=== PATIENT | male | born 1960 | race Caucasian/White ===

== ENCOUNTER → 2019-10-22 | Outpatient (CLI) | payer OTHER | END | disposition home or self-care (01) | LOC: LAB 13:13 | PROVIDERS: ATTEND Surgery | DX: Z01.812 Encounter for preprocedural laboratory examination (principal); Z20.828 Contact with and (suspected) exposure to other viral communicable diseases; K40.90 Unilateral inguinal hernia, without obstruction or gangrene, not specified as recurrent | CPT/HCPCS: U0003-CS ==

== ENCOUNTER 2019-10-27 11:38 | Day surgery (SDC) | payer OTHER ==
[~2019-10-27] VITALS: Ht 170.2 cm; Wt 56.0 kg
[2019-10-27] MEDS: IV RINGERS,LACTATED 1000ML 1,000 ML IV SCH ×2 (07:00→15:10)
[~2019-10-27 11:38] MED LIST: ACETAMINOPHEN 500 MG TABLET PO SCH; HYDROmorphone 2 MG/ML VIAL IV PRN; LIDOCAINE 1% PF 2 ML VIAL. ID PRN; MORPHINE SULFATE 2 MG/ML VIAL. IV PRN; ONDANSETRON PF 4 MG/2 ML VIAL. IV PRN; fentaNYL PF VIAL 100 MCG/2 ML VIAL IV PRN
[2019-10-27] MEDS ORDERED: DEXAMETHASONE SOD PHOS 4 MG/ML VIAL ONE (12:33)
[2019-10-27] MEDS ORDERED: fentaNYL PF VIAL 100 MCG/2 ML VIAL ONE ×2 (12:33→14:50)
[2019-10-27] MEDS ORDERED: SEVOFLURANE > 120 MINUTES. IH ONE (12:33)
[2019-10-27] MEDS ORDERED: MIDAZOLAM HCL/PF 2 MG/2 ML VIAL. ONE (12:33)
[2019-10-27] MEDS ORDERED: GLYCOPYRROLATE 1 MG/5 ML VIAL. ONE (12:33)
[2019-10-27] MEDS ORDERED: NEOSTIGMINE METHYLSULFATE 5 MG/5 ML SYRINGE. ONE (12:33)
[2019-10-27] MEDS ORDERED: ROCURONIUM 50 MG/5 ML VIAL. ONE (12:33)
[2019-10-27] MEDS ORDERED: PROPOFOL 10 MG/ML (20ML) VIAL. IV ONE (12:33)
[2019-10-27] MEDS ORDERED: ONDANSETRON PF 4 MG/2 ML VIAL. ONE (12:34)
[2019-10-27] MEDS ORDERED: LIDOCAINE 2% PF 5 ML VIAL. ONE (12:34)
[2019-10-27] MEDS ORDERED: MINERAL OIL for SURGERY 10 ML VIAL. MC ONE (13:00)
[2019-10-27] MEDS ORDERED: BUPIVACAINE-EPI 0.25%-1:200000 MPF 30 ML VIAL. INJ ONE (13:30)
[2019-10-27] MEDS ORDERED: ACETAMINOPHEN 500 MG TABLET PO ONE (13:45)
[2019-10-27] MEDS ORDERED: BUPIVACAINE-EPI 0.5%-1:200000 MPF 30 ML VIAL. ONE (13:51)
[2019-10-27] MEDS ORDERED: ePHEDrine PF IN SALINE 50 MG/10 ML SYRINGE. IV ONE (13:57)
[2019-10-27] MEDS ORDERED: PHENYLEPHRINE in 0.9% NACL PF 1 MG/10 ML SYRINGE. IV ONE (13:57)
--- NOTE | 2019-10-27 14:33 | PDOC4 ---
Operative Note Operative Note Date: 10/27/2019 at 1430 Preoperative diagnosis: Left inguinal hernia Postoperative diagnosis: Same Procedure: Robotic assisted laparoscopic left inguinal hernia repair with mesh Surgeon: Patricio Specimen: None Dictation: Patient is a 59-year-old gentleman with a left inguinal hernia and pain procedure of robotic assisted laparoscopic left inguinal hernia repair with mesh was explained to the patient detail was benefits were also discussed including bleeding infection injury to intra-abdominal contents possible necessitating further or open operations alternatives to this procedure also discussed with the patient who seemed to understand and gave both verbal and written consent to have the procedure performed. Patient was taken to the operating room placed the supine position general anesthesia was initiated once patient was sleeping intubated placed in low lithotomy positioning and his abdomen was prepped and draped usual sterile fashion using ChloraPrep. An area just above the umbilicus was injected with half percent Marcaine with epinephrine incision was made 11 blade scalpel and a varies needle was placed within the abdomen creating pneumoperitoneum once this was complete a da Sin 8 mm port was placed in the da Sin camera was placed within the abdomen which was inspected though no other abnormalities were noted was noted that he had a left inguinal hernia. 8 mm da Sin port was placed in the right midabdomen and 8 mm da Sin port was placed in the left mid abdomen all under direct visualization da Sin robot was brought and docked all port sites surgeon went to the robotic console using a grasper and Endo Natalie scissors the peritoneum over the left side was incised a window was propagated inferiorly reducing the hernia sac and contents. A 3D max Bard mesh for the left side was used this was been placed over the hernia defect. The peritoneum was then closed with a running 2 OV lock absorbable suture. The robot was undocked from all port sites were removed the ports were all removed the pneumoperitoneum was reduced all port sites were closed for septic either Monocryl Mastisol Steri-Strips and island dressings were applied. Patient was awakened and extubated in the operating room taken to recovery in stable condition all sponge instrument needle counts listed as correct estimated blood loss 5 mL CARLOZ CORTEZ MD Oct 27, 2019 14:33
--- NOTE | 2019-10-27 14:35 | DISCH ---
DISCHARGE INSTRUCTIONS Condition on Discharge Condition on Discharge: Stable Activity After Discharge Activity Instructions for Disc: Avoid exertion Other activity instructions: No lifting more than 20 pounds for 2 weeks Diet after Discharge Diet after Discharge: Regular Wound Incision Care Other wound/incision instructi: May shower in 24 hours Contacting the after DC Call your doctor for: If your condition worsens Follow-Up Follow up with: Dr. Cortez in 2 weeks CARLOZ CORTEZ MD Oct 27, 2019 14:35
[2019-10-27] MEDS ORDERED: PROCHLORPERAZINE 10 MG/2 ML VIAL. ONE (14:51)
[2019-10-27] MEDS ORDERED: OXYC1TAB15 PO (14:56)
[2019-10-27] MEDS ORDERED: oxyCODONE/APAP 5/325 1 TAB TABLET PO ONE ×2 (15:00)
[2019-10-27] MEDS: PROCHLORPERAZINE 10 MG/2 ML VIAL. IV PRN ×2 (15:07→15:27)
[2019-10-27] MEDS: fentaNYL PF VIAL 100 MCG/2 ML VIAL IV PRN ×2 (15:08→15:27)
[2019-10-27 16:45] VITALS: BP 140/69
== END 2019-10-27 17:10 | disposition home or self-care (01) ==
LOC: SURG 11:38
PROVIDERS: ATTEND Surgery
DX: K40.90 Unilateral inguinal hernia, without obstruction or gangrene, not specified as recurrent (principal); Z88.0 Allergy status to penicillin; Z88.2 Allergy status to sulfonamides; Z88.8 Allergy status to other drugs, medicaments and biological substances; Z79.899 Other long term (current) drug therapy
CPT/HCPCS: 49650; A7015; C1781; J0780; J1100; J1956; J2250; J2370; J2405; J2704; J2710; J3010; J3490; J7120

== ENCOUNTER → 2020-02-05 | Outpatient (CLI) | payer OTHER ==
[~2020-02-05] MED LIST changes: -ACETAMINOPHEN 500 MG TABLET PO SCH; -HYDROmorphone 2 MG/ML VIAL IV PRN; -LIDOCAINE 1% PF 2 ML VIAL. ID PRN; -MORPHINE SULFATE 2 MG/ML VIAL. IV PRN; -ONDANSETRON PF 4 MG/2 ML VIAL. IV PRN; +OXYC1TAB15 PO; -fentaNYL PF VIAL 100 MCG/2 ML VIAL IV PRN
--- NOTE | 2020-02-05 09:08 | RAD ---
Soft tissue ultrasound of the left groin without comparison for lump, pain, history of hernia repair in December 2019. TECHNIQUE AND FINDINGS: Targeted grayscale and color Doppler ultrasound of the left area of interest is performed. In the area of interest, there is 2.5 cm circumscribed heterogeneously hyperechoic mobi le soft tissue collection which likely represents herniated fat. This enlarges and shrinks based on a ctivity of the abdominal musculature. IMPRESSION: 1. Persistent hernia in the area of interest. Contents are most suggestive of fat. No evidence of inc arceration. Electronically signed by: Waqas Miner MD (02/05/2020 9:05 AM) [id number]
== END ==
LOC: US 08:32
PROVIDERS: ATTEND Surgery
DX: K46.9 Unspecified abdominal hernia without obstruction or gangrene (principal); R10.30 Lower abdominal pain, unspecified
CPT/HCPCS: 76881

== ENCOUNTER → 2020-03-07 | Outpatient (CLI) | payer OTHER ==
[~2020-03-07] MED LIST changes: +OXYC-325 PO
== END ==
LOC: LAB 10:11
PROVIDERS: ATTEND Surgery
DX: Z01.812 Encounter for preprocedural laboratory examination (principal); K40.91 Unilateral inguinal hernia, without obstruction or gangrene, recurrent; Z20.828 Contact with and (suspected) exposure to other viral communicable diseases
CPT/HCPCS: U0003

== ENCOUNTER 2020-03-10 06:07 | Day surgery (SDC) | payer OTHER ==
[~2020-03-10] VITALS: Ht 170.2 cm; Wt 56.5 kg
[~2020-03-10 06:07] MED LIST changes: -OXYC-325 PO
[2020-03-10] MEDS ORDERED: PROPOFOL 10 MG/ML (20ML) VIAL. IV ONE (06:28)
[2020-03-10] MEDS ORDERED: DEXAMETHASONE SOD PHOS 20 MG/5 ML VIAL. ONE (06:29)
[2020-03-10] MEDS ORDERED: ONDANSETRON PF 4 MG/2 ML VIAL. ONE (06:29)
[2020-03-10] MEDS ORDERED: ROCURONIUM 50 MG/5 ML VIAL. ONE (06:29)
[2020-03-10] MEDS ORDERED: LIDOCAINE 2% PF 5 ML VIAL. ONE (06:29)
[2020-03-10] MEDS ORDERED: BUPIVACAINE-EPI 0.25% 30 ML VIAL KIT. ONE (06:55)
[2020-03-10] MEDS ORDERED: MINERAL OIL for SURGERY 10 ML VIAL. MC ONE (06:55)
[2020-03-10] MEDS ORDERED: HYDROmorphone 2 MG/ML VIAL IV PRN (07:00)
[2020-03-10] MEDS ORDERED: ONDANSETRON PF 4 MG/2 ML VIAL. IV PRN (07:00)
[2020-03-10] MEDS ORDERED: IV RINGERS,LACTATED 1000ML 1,000 ML IV SCH (07:00)
[2020-03-10] MEDS ORDERED: fentaNYL PF VIAL 100 MCG/2 ML VIAL IV PRN ×2 (07:00)
[2020-03-10] MEDS ORDERED: MORPHINE SULFATE 2 MG/ML VIAL. IV PRN (07:00)
[2020-03-10] MEDS ORDERED: fentaNYL PF VIAL 250 MCG/5 ML VIAL ONE (07:08)
--- NOTE | 2020-03-10 07:29 | PDOC1 ---
History and Physical Date of Admission Date of Admission DATE: 03/10/20 TIME: 07:26 Identification/Chief Complaint Chief Complaint Left groin pain Source Source: Chart review, Patient History of Present Illness History of Present Illness 59-year-old male who had a laparoscopic left inguinal hernia repair October 2019 returns now with left groin pain and ultrasound showing recurrent hernia Past Medical History Cardiovascular: No pertinent hx Pulmonary: No pertinent hx CENTRAL NERVOUS SYSTEM: Other (Celiac) GI: No pertinent hx Heme/Onc: No pertinent hx Hepatobiliary: No pertinent hx Psych: No pertinent hx Rheumatologic: No pertinent hx Infectious disease: No pertinent hx ENT: No pertinent hx Renal/: No pertinent hx Endocrine: No pertinent hx Dermatology: No pertinent hx Past Surgical History Past Surgical History: Hernia Repair, Other (Colonoscopy) Family History Family History: No Significant Social History Smoke: Quit ALCOHOL: occassional Drugs: None Current Medications Current Medications Current Medications Ondansetron HCl (Zofran) 4 mg PRN Q6HRS PRN IV NAUSEA/VOMITING; Start 03/10/20 at 07:00; Stop 03/10/20 at 20:00 Fentanyl Citrate (Fentanyl 2ml Vial) 25 mcg PRN Q5MIN PRN IV MILD PAIN 1-3; Start 03/10/20 at 07:00; Stop 03/10/20 at 20:00 Fentanyl Citrate (Fentanyl 2ml Vial) 50 mcg PRN Q5MIN PRN IV MODERATE TO SEVERE PAIN; Start 03/10/20 at 07:00; Stop 03/10/20 at 20:00 Morphine Sulfate (Morphine Sulfate) 1 mg PRN Q10MIN PRN IV SEVERE PAIN 7-10; Start 03/10/20 at 07:00; Stop 03/10/20 at 20:00 Ringer's Solution 1,000 ml @ 30 mls/hr Q24H IV Last administered on 03/10/20at 06:44; Start 03/10/20 at 07:00; Stop 03/10/20 at 18:59 Hydromorphone HCl (Dilaudid) 0.5 mg PRN Q10MIN PRN IV SEV PAIN, Second choice; Start 03/10/20 at 07:00; Stop 03/10/20 at 20:00 Prochlorperazine Edisylate (Compazine) 5 mg PACU PRN PRN IV NAUSEA, MRX1; Start 03/10/20 at 07:00; Stop 03/10/20 at 20:00 Acetaminophen (Tylenol) 1,000 mg 1X PREOP PRN PO PRIOR TO SURGERY Last administered on 03/10/20at 06:45; Start 03/10/20 at 08:00 Levofloxacin/ Dextrose 100 ml @ 100 mls/hr 1X PREOP PRN IV PRIOR TO SURGERY; Start 03/09/20 at 21:45 Propofol (Diprivan) 200 mg STK-MED ONCE IV ; Start 03/10/20 at 06:28; Stop 03/10/20 at 06:29; Status DC Lidocaine HCl (Lidocaine Pf 2% Vial) 5 ml STK-MED ONCE .ROUTE ; Start 03/10/20 at 06:29; Stop 03/10/20 at 06:29; Status DC Dexamethasone Sodium Phosphate (Decadron) 20 mg STK-MED ONCE .ROUTE ; Start 03/10/20 at 06:29; Stop 03/10/20 at 06:29; Status DC Ondansetron HCl (Zofran) 4 mg STK-MED ONCE .ROUTE ; Start 03/10/20 at 06:29; Stop 03/10/20 at 06:29; Status DC Rocuronium [place] (Zemuron) 50 mg STK-MED ONCE .ROUTE ; Start 03/10/20 at 06:29; Stop 03/10/20 at 06:29; Status DC Bupivacaine HCl/ Epinephrine Bitart (Sensorcain-Epi 0.25% Kit) 30 ml STK-MED ONCE .ROUTE ; Start 03/10/20 at 06:55; Stop 03/10/20 at 06:55; Status DC Mineral Oil (Muri-Lube) 10 ml STK-MED ONCE MC ; Start 03/10/20 at 06:55; Stop 03/10/20 at 06:55; Status DC Fentanyl Citrate (Fentanyl 5ml Vial) 250 mcg STK-MED ONCE .ROUTE ; Start 03/10/20 at 07:08; Stop 03/10/20 at 07:08; Status DC Active Scripts Active Reported No Known Medications Prior To Admisstion (Info) Each 1 Each MC DAILY Allergies Allergies: Coded Allergies: Penicillins (Verified Allergy, Severe, Breathing issues, 03/10/20) Sulfa (Sulfonamide Antibiotics) (Verified Allergy, Severe, Breathing issues, 03/10/20) aspirin (Verified Allergy, Severe, Breathing issues, 03/10/20) ROS Genitourinary: YES Other (Left inguinal pain) Physical Exam General: Alert, Oriented X3, Cooperative, No acute distress HEENT: Atraumatic, EOMI Lungs: Clear to auscultation, Normal air movement Heart: RRR, no murmurs Abdomen: Normal bowel sounds, Soft, No tenderness Male Genitals Exam: other (Left inguinal hernia) Rectal Exam: not examined Extremities: No edema Skin: No significant lesion Neuro: Normal speech Psych/Mental Status: Mental status NL Vitals Vitals Vital Signs Date Time Temp Pulse Resp B/P (MAP) Pulse Ox O2 Delivery O2 Flow Rate FiO2 03/10/20 06:37 97.5 72 18 127/80 98 Room Air 97.5 VTE Prophylaxis Ordered VTE Prophylaxis Devices: Yes VTE Pharmacological Prophylaxi: Contraindicated Assessment/Plan Assessment/Plan Recurrent left inguinal hernia plan repair Justifications for Admission Other Justification CARLOZ CORTEZ MD Mar 10, 2020 07:29
[2020-03-10] MEDS ORDERED: ACETAMINOPHEN 500 MG TABLET PO PRN (08:00)
[2020-03-10] MEDS ORDERED: SEVOFLURANE 61 TO 120 MINUTES. IH ONE (08:32)
[2020-03-10] MEDS ORDERED: NEOSTIGMINE METHYLSULFATE 5 MG/5 ML SYRINGE. ONE (08:49)
[2020-03-10] MEDS ORDERED: GLYCOPYRROLATE 1 MG/5 ML VIAL. ONE (08:49)
--- NOTE | 2020-03-10 08:57 | PDOC4 ---
Operative Note Operative Note Date: March 102020 at 854 Preoperative diagnosis: Recurrent left inguinal hernia Postoperative diagnosis: Same Procedure: Robotic assisted laparoscopic left inguinal hernia repair with mesh Surgeon: Patricio Specimen: None Dictation: Patient is 59-year-old gentleman who had a left inguinal hernia repaired October 2019 returns with recurrent hernia by ultrasound and pain. Procedure of robotic assisted laparoscopic left inguinal hernia repair with mesh was explained to the patient detail risk benefits were also discussed occluding bleeding infection injury to intra-abdominal contents possible necessitating further open operations alternatives to this procedure also discussed with the patient who seemed to understand and gave both verbal and written consent to have the procedure performed. Patient was taken to the operating room placed in the supine position general anesthesia was initiated once patient was sleeping intubated his abdomen was prepped and draped usual sterile fashion using ChloraPrep he was also placed in low lithotomy positioning a area just above the umbilicus was injected with quarter percent Marcaine with epinephrine incision was made with a blade scalpel and a varies needle was placed within the abdomen creating pneumoperitoneum once this complete a millimeter da Sin port was placed and a da Sin camera was placed within the abdomen which was inspected no other abnormalities were noted was noted he did have a left inguinal hernia. 8 mm da Sin port was placed in the right midabdomen and one in the left midabdomen the da Sin robot was brought and docked all port sites surgeon went to the robotic console using grasper and Endo Natalie scissors the peritoneum over the left groin was incised and propagated inferiorly reducing the peritoneum off the previous mesh and reducing the hernia sac and contents. Previous mesh was left in place and a new Bard 3D max medium for the left side was placed overlapping the previous mesh covering the hernia defect. 3-0 Vicryl was used to suture the mesh to the Nikunj's ligament as well as superiorly to fixate the mesh. The peritoneum was then brought up and covered over the mesh closed with a running 2 OV lock absorbable suture. Once this complete the robot was undocked from all port sites pneumoperitoneum was reduced all ports were removed. Port incisions were all closed for subcuticular Monocryl Mastisol Steri-Strips and island dressings were applied. Patient was awakened and extubated in the operating room taken to recovery in stable condition all sponge instrument needle counts listed as correct estimated blood loss 10 mL CARLOZ CORTEZ MD Mar 10, 2020 08:57
--- NOTE | 2020-03-10 08:58 | DISCH ---
DISCHARGE INSTRUCTIONS Condition on Discharge Condition on Discharge: Stable Activity After Discharge Activity Instructions for Disc: Avoid exertion Other activity instructions: No lifting more than 20 pounds for 2 weeks Diet after Discharge Diet after Discharge: Regular Wound Incision Care Other wound/incision instructi: May shower in 24 hours Contacting the DRYovanny after DC Call your doctor for: If your condition worsens Follow-Up Follow up with: Dr. Cortez in 2 weeks CARLOZ CORTEZ MD Mar 10, 2020 08:58
[2020-03-10] MEDS ORDERED: KETOROLAC 30 MG/ML VIAL. ONE (09:10)
[2020-03-10] MEDS ORDERED: PROCHLORPERAZINE 10 MG/2 ML VIAL. ONE (09:47)
[2020-03-10] MEDS: PROCHLORPERAZINE 10 MG/2 ML VIAL. IV PRN ×2 (09:51→10:02)
[2020-03-10] MEDS ORDERED: fentaNYL PF VIAL 100 MCG/2 ML VIAL ONE (10:04)
[2020-03-10] MEDS ORDERED: OXYC-325 PO (10:24)
[2020-03-10 10:51] VITALS: BP 127/72
[2020-03-10] MEDS ORDERED: oxyCODONE/APAP 5/325 1 TAB TABLET PO ONE (11:00)
== END 2020-03-10 11:25 | disposition home or self-care (01) ==
LOC: SURG 06:07
PROVIDERS: ATTEND Surgery
DX: K40.91 Unilateral inguinal hernia, without obstruction or gangrene, recurrent (principal); Z79.899 Other long term (current) drug therapy; Z98.890 Other specified postprocedural states; Z88.0 Allergy status to penicillin; Z88.2 Allergy status to sulfonamides; Z88.8 Allergy status to other drugs, medicaments and biological substances
CPT/HCPCS: 49651; J0780; J1100; J1885; J1956; J2405; J2704; J2710; J3010; J3490; S2900; C1781